=== PATIENT | female | born 1975 | race Caucasian/White ===

== ENCOUNTER 2019-10-26 09:55 | Emergency (ER) | payer OTHER, SELFPAY ==
--- NOTE | 2019-10-26 10:02 | ED.URI ---
HPI - URI/Sore Throat General Stated Complaint: Ear Pain,Cough Time Seen by Provider: 10/26/19 10:02 Source: patient and RN notes reviewed History of Present Illness HPI Narrative: Patient is a 44-year-old female presents the urgent care with complaints of left ear pain and cough. Patient started on Thursday with her symptoms. States that he has not done anything for her symptoms [id number]. Patient states that she is broke . Denies any known fever but states she has had chills. No other acute complaints. No acute distress noted. Patient aware the plan of care. Related Data Home Medications Medication Instructions Recorded Confirmed albuterol sulfate 2 puff INHALATION Q4-6H PRN 10/26/19 10/26/19 ergocalciferol (vitamin D2) 1,250 mcg PO WEEKLY 10/26/19 10/26/19 [Vitamin D2] Allergies Allergy/AdvReac Type Severity Reaction Status Date / Time diphenhydramine Allergy Mild rash Verified 10/26/19 10:01 Review of Systems Review of Systems: Narrative: CONSTITUTIONAL: Reports of chills EYES: Denies visual changes, redness, or discharge. ENT: Reports of sore throat and left otalgia CARDIOVASCULAR: Denies chest pain, palpitations, or edema. RESPIRATORY: Reports of nonproductive cough without dyspnea GASTROINTESTINAL: Denies abdominal pain, nausea, vomiting, or diarrhea. GENITOURINARY: Denies dysuria or hematuria. SKIN: Denies rash or itching. MUSCULOSKELETAL: Denies back pain, joint pain, or myalgia. NEUROLOGIC: Denies headache, numbness, or weakness. [facility] Social History Social History Gender identity (if verbalized by the patient): Female Comments At the time of my signature, I reviewed and agree with the nursing past medical, surgical, social, and family history. There is no relevant family history pertinent to the patient complaint. Exam Narrative: Exam Narrative: GENERAL: This is a well-nourished, well-developed patient, in no apparent distress. HEAD: normocephalic, atraumatic. EYES: PERRL. Sclera clear/white. Vision is grossly intact. EARS: External ears normal, auditory canals clear and without drainage, moderately effused and bulging left TM, right TM normal without perforation. Hearing grossly intact. NOSE: External nose normal with no obvious nasal discharge, nares without redness, no rhinorrhea. THROAT: Mucous membranes moist, posterior pharynx clear. Moderate postnasal drainage NECK: Neck supple CARDIOVASCULAR: Regular rate and rhythm without murmurs, gallops, or rubs. RESPIRATORY: Notable cough clear to auscultation. Breath sounds equal bilaterally. No wheezes, rales, or rhonchi. SKIN: warm, intact with no suspicious lesions or rash, good texture and turgor. NEURO: awake, alert, and oriented to person, place and time. There were no obvious focal neurologic abnormalities. EXTREMITIES: No clubbing, cyanosis, or edema. Course Vital Signs Vital signs: Vital Signs Temperature 97.8 F 10/26/19 10:13 Pulse Rate 89 10/26/19 10:13 Respiratory Rate 16 10/26/19 10:13 Blood Pressure 119/65 10/26/19 10:13 Pulse Oximetry 96 10/26/19 10:13 Temperature 97.8 F 10/26/19 10:13 Pulse Rate 89 10/26/19 10:13 Respiratory Rate 16 10/26/19 10:13 Blood Pressure 119/65 10/26/19 10:13 Pulse Oximetry 96 10/26/19 10:13 Reviewed MDM - URI/Sore Throat MDM Narrative Medical decision making narrative: Reviewed lab results with the patient. She is aware that strep swab was negative. Educated her on culture and will call within 72 hours if culture is positive and antibiotics are necessary. Advised the patient to use [id number] Flonase and Zyrtec for postnasal drainage. Complete amoxicillin for left ear pain as prescribed. Make sure to eat and drink with the medication. Use Tylenol/ibuprofen as needed for fever pain. Increase fluids and rest. Use humidifier at night. Follow-up with PCP within 2 to 5 days or for worsening symptoms or failure to improve. Differential Diagnosis
[2019-10-26 10:13] VITALS: BP 119/65; PULSE 89; RESP 16; TEMP 36.6; O2SAT 96
== END 2019-10-26 10:45 | disposition home or self-care (01) ==
PROVIDERS: Emergency Provider Nurse Practitioner Family; PCP Family Medicine
DX: H66.92 Otitis media, unspecified, left ear (principal); J45.909 Unspecified asthma, uncomplicated
CPT/HCPCS: 87081; 87880; 99213; G0463

== ENCOUNTER 2020-04-13 20:43 | Emergency (ER) | payer OTHER, SELFPAY ==
[2020-04-13 20:45] VITALS: BP 120/89; PULSE 99; RESP 18; TEMP 36.9; O2SAT 100
--- NOTE | 2020-04-13 21:29 | ED.GENADULT ---
HPI - General Adult General Chief complaint: Dental/Oral Stated complaint: facial infection Time Seen by Provider: 04/13/20 21:14 Source: patient Mode of arrival: ambulatory Limitations: no limitations History of Present Illness HPI narrative: Patient is a 45-year-old female who presents to emergency department for evaluation of gross dental decay noting right lower and upper dental pain and right posterior upper dental pain. Patient has recurrent infections notes moderate aching pain worse with eating and swallowing. Patient denies URI symptoms fever chills and has not been seen for this complaint by a dentist Related Data Home Medications Medication Instructions Recorded Confirmed albuterol sulfate 2 puff INHALATION Q4-6H PRN 10/26/19 10/26/19 ergocalciferol (vitamin D2) 1,250 mcg PO WEEKLY 10/26/19 10/26/19 [Vitamin D2] Allergies Allergy/AdvReac Type Severity Reaction Status Date / Time diphenhydramine Allergy Mild rash Verified 10/26/19 10:01 Review of Systems Review of Systems: All systems reviewed & are unremarkable except as noted in HPI and below PMFSH Past Medical History Medical History Obesity Surgical History Surgical History H/O section Social History Social History Smoking status: Current every day smoker Gender identity (if verbalized by the patient): Female Exam Narrative: Exam Narrative: GENERAL: Well-appearing, obese, and in no acute distress. HEAD: Normocephalic, atraumatic. EYES: PERRLA and EOMI. ENT: Nares clear, no rhinorrhea or epistaxis. Mucous membranes moist. Patient with dental caries in the oropharynx with no swelling of the gums. Uvula midline no trismus or drooling. Floor the mouth is soft NECK: Supple. No adenopathy or masses. CHEST: Clear to auscultation. No respiratory distress. No wheezes rales or rhonchi HEART: Regular rate and rhythm. No murmur heard. SKIN: Warm, dry, no rash. NEURO: No focal deficits. Alert and oriented x3. PSYCH: Normal mood and affect. Course Course Emergency Course: Patient in the room in no distress felt appropriate for outpatient reevaluation. Patient given medications in the emergency department for pain Vital Signs Vital signs: Vital Signs Temperature 98.5 F 04/13/20 20:45 Pulse Rate 99 04/13/20 20:45 Respiratory Rate 18 04/13/20 20:45 Blood Pressure 120/89 04/13/20 20:45 Pulse Oximetry 100 04/13/20 20:45 Temperature 98.5 F 04/13/20 20:45 Pulse Rate 99 04/13/20 20:45 Respiratory Rate 18 04/13/20 20:45 Blood Pressure 120/89 04/13/20 20:45 Pulse Oximetry 100 04/13/20 20:45 Medical Decision Making MDM Narrative Medical decision making narrative: Patients pain and complaint coupled with physical findings are consistent with dentalgia. There are no focal signs of space occupying lesions that are compromising to the airway. The floor of the mouth is soft with no signs of Ludwigs Angina. Patient is without trismus or drooling and able to swallow secretions. Patient is felt appropriate for discharge home with dental follow up. Vital Signs Vital Signs: Vital Signs Temperature 98.5 F 04/13/20 20:45 Pulse Rate 99 04/13/20 20:45 Respiratory Rate 18 04/13/20 20:45 Blood Pressure 120/89 04/13/20 20:45 Pulse Oximetry 100 04/13/20 20:45 Temperature 98.5 F 04/13/20 20:45 Pulse Rate 99 04/13/20 20:45 Respiratory Rate 18 04/13/20 20:45 Blood Pressure 120/89 04/13/20 20:45 Pulse Oximetry 100 04/13/20 20:45 Discharge Plan Discharge Clinical Impression: Toothache Patient Disposition: Home, Self-Care Condition: Stable Instructions: Antibiotic Form, Toothache (ED) Additional Instructions: Follow up with your primary care doctor in 5-7 days for re-evaluation. Go to ER fo
[2020-04-13] MEDS: KETOROLAC (*BKC) 60 MG/2 ML VIAL IM (21:37)
[2020-04-13 22:54] VITALS: BP 132/71; PULSE 87; RESP 18; O2SAT 100
== END 2020-04-13 22:58 | disposition home or self-care (01) ==
PROVIDERS: Emergency Provider Emergency Medicine; PCP Family Medicine
DX: K08.89 Other specified disorders of teeth and supporting structures (principal); E66.9 Obesity, unspecified; F17.200 Nicotine dependence, unspecified, uncomplicated
CPT/HCPCS: 96372; 99283; A9270; J1885

== ENCOUNTER 2020-05-19 21:57 | Emergency (ER) | payer OTHER, SELFPAY ==
[2020-05-19 22:04] VITALS: BP 145/69; PULSE 103; RESP 20; TEMP 36.7; O2SAT 98
--- NOTE | 2020-05-19 23:01 | ED.GENADULT ---
HPI - General Adult General Chief complaint: Wound/Laceration Stated complaint: BOIL UNDER R BREAST Time Seen by Provider: 05/19/20 22:40 History of Present Illness HPI narrative: Patient is a 45-year-old female who presents ER with concerns for infection beneath her right breast. Worsening over last 3 to 4 days. Feels a bump. No drainage. Skin is red and hot and very tender. No fevers or chills or sweats. 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 Related Data Home Medications Medication Instructions Recorded Confirmed albuterol sulfate 2 puff INHALATION Q4-6H PRN 10/26/19 10/26/19 ergocalciferol (vitamin D2) 1,250 mcg PO WEEKLY 10/26/19 10/26/19 [Vitamin D2] Allergies Allergy/AdvReac Type Severity Reaction Status Date / Time diphenhydramine Allergy Mild rash Verified 05/19/20 22:40 Review of Systems Review of Systems: All systems reviewed & are unremarkable except as noted in HPI and below Constitutional: Constitutional: Denies chills, Denies fever(s) and Denies weakness Integumentary/Breasts: Skin/Breast: Denies breast pain and Reports erythema PMFSH Past Medical History Medical History (Updated 05/19/20 @ 23:38 by Ermias Culver MD) Hydradenitis Obesity Surgical History Surgical History H/O section Social History Social History Smoking status: Current every day smoker Gender identity (if verbalized by the patient): Female Exam Narrative: Exam Narrative: GENERAL: Well-appearing, well-nourished, and in no acute distress. HEAD: Normocephalic, atraumatic. ABDOMEN: Soft, nontender, nondistended. EXTREMITIES: Normal range of motion. No edema. SKIN: Warm, dry, no rash. Oval area of firm skin and redness beneath the right breast lower chest wall consistent with cellulitis. NEURO: Alert and oriented x3. Course Course Emergency Course: Bedside ultrasound with a small area of fluid collection. This is been incised and drained. Bactrim here. Discharge home. Vital Signs Vital signs: Vital Signs Temperature 98.1 F 05/19/20 22:04 Pulse Rate 103 H 05/19/20 22:04 Respiratory Rate 20 05/19/20 22:04 Blood Pressure 145/69 H 05/19/20 22:04 Pulse Oximetry 98 05/19/20 22:04 Temperature 98.1 F 05/19/20 22:04 Pulse Rate 103 H 05/19/20 22:04 Respiratory Rate 05/19/20 22:04 Blood Pressure 145/69 H 05/19/20 22:04 Pulse Oximetry 98 05/19/20 22:04 Procedures Abscess I/D chest: Date of Incision: 05/19/20 Time of Incision: 22:50 Side (if applicable): right Local Anesthetic: lidocaine 1% and with epi Amount of anesthesia used (mL): 6 Technique: incised with #11 blade Irrigation: No Packing used?: iodoform I&D Results: Other (pus and cystic material) Medical Decision Making Vital Signs Vital Signs: Vital Signs Temperature 98.1 F 05/19/20 22:04 Pulse Rate 103 H 05/19/20 22:04 Respiratory Rate 20 05/19/20 22:04 Blood Pressure 145/69 H 05/19/20 22:04 Pulse Oximetry 98 05/19/20 22:04 Temperature 98.1 F 05/19/20 22:04 Pulse Rate 103 H 05/19/20 22:04 Respiratory Rate 05/19/20 22:04 Blood Pressure 145/69 H 05/19/20 22:04 Pulse Oximetry 98 05/19/20 22:04 Discharge Plan Discharge Clinical Impression: Abscess Patient Disposition: Home, Self-Care Condition: Stable Instructions: Antibiotic Form, Abscess (ED) Prescriptions: New sulfamethoxazole-trimethoprim [Bactrim DS] 800-160 mg tablet 1 tablet PO Q12H Qty: 14 RF: 0 hydrocodone-acetaminophen 5-325 mg tablet 1 tablet PO Q6H PRN (Reason: pain) Qty: 12 RF: 0 No Action ergocalciferol (vitamin D2) [Vitamin D2] 1,250 mcg (50,000 unit) Capsule 1,250 mcg PO WEEKLY RF: 0 albuterol sulfate 90 mcg/actuat
[2020-05-19] MEDS: LIDO 1%/EPINEPHRINE 1:100,000 20 ML VIAL (23:17)
== END 2020-05-19 23:47 | disposition home or self-care (01) ==
PROVIDERS: Emergency Provider Emergency Medicine; PCP Family Medicine
DX: L02.213 Cutaneous abscess of chest wall (principal); E66.9 Obesity, unspecified; F17.200 Nicotine dependence, unspecified, uncomplicated
CPT/HCPCS: 10061; 99283; A9270

== ENCOUNTER 2020-06-12 00:33 | Emergency (ER) | payer OTHER, SELFPAY ==
[2020-06-12 00:44] VITALS: BP 113/79; PULSE 99; RESP 22; TEMP 36.3; O2SAT 98
--- NOTE | 2020-06-12 02:54 | ED.SKABFB ---
HPI - Skin/Abscess/Foreign Bdy General Chief complaint: Skin/Abscess/Foreign Body Stated complaint: left breast/armpit/back discomfort Time Seen by Provider: 06/12/20 02:15 History of Present Illness HPI narrative: Pain to the skin on the left chest wall just below the left breast for the past five days. The pain changes between stinging, heat, and numbness. Yesterday she began to develop a red rash in this area. She has previously had chicken pox. No fever, SOB, open sores. Related Data Home Medications Medication Instructions Recorded Confirmed albuterol sulfate 2 puff INHALATION Q4-6H PRN 10/26/19 10/26/19 ergocalciferol (vitamin D2) 1,250 mcg PO WEEKLY 10/26/19 10/26/19 [Vitamin D2] Allergies Allergy/AdvReac Type Severity Reaction Status Date / Time diphenhydramine Allergy Mild rash Verified 05/19/20 22:40 Review of Systems Review of Systems: All systems reviewed & are unremarkable except as noted in HPI and below Constitutional: Constitutional: Denies chills, Denies fever(s) and Denies weakness Cardiovascular: Cardiovascular: Denies chest pain Respiratory: Respiratory: Denies dyspnea Gastrointestinal: Gastrointestinal: Denies abdominal pain, Denies nausea and Denies vomiting Musculoskeletal: Musculoskeletal: Denies back pain Integumentary/Breasts: Skin/Breast: Reports rash and Denies skin ulcer Neurologic: Denies confusion, Denies dizziness, Denies headache(s), Reports numbness and Denies weakness PMFSH Past Medical History Medical History Hydradenitis Obesity Surgical History Surgical History H/O section Social History Social History Smoking status: Current every day smoker Gender identity (if verbalized by the patient): Female Exam Const: General: no acute distress and alert Nutritional Appearance: well nourished Orientation/consciousness: patient oriented x3 HENMT: Head: normal to inspection Resp: Effort & Inspection: normal respiratory effort Auscultation: clear to auscultation bilaterally Cardio: Rate: regular rate Rhythm: regular rhythm GI: Inspection: non-distended Skin: Other: Pain, paresthesia and mildly erythematous rash on the left chest in approximately T5 distribution Course Vital Signs Vital signs: Vital Signs Temperature 36.3 C L 06/12/20 00:44 Pulse Rate 99 06/12/20 00:44 Respiratory Rate 22 H 06/12/20 00:44 Blood Pressure 113/79 06/12/20 00:44 Pulse Oximetry 98 06/12/20 00:44 Temperature 36.3 C L 06/12/20 00:44 Pulse Rate 99 06/12/20 00:44 Respiratory Rate 22 H 06/12/20 00:44 Blood Pressure 113/79 06/12/20 00:44 Pulse Oximetry 98 06/12/20 00:44 Discharge Plan Discharge Clinical Impression: Shingles Patient Disposition: Home, Self-Care Condition: Stable Instructions: Antibiotic Form, Shingles (ED) Prescriptions: New acyclovir 800 mg tablet 800 mg PO Q4H 7 Days Qty: 42 RF: 0 hydrocodone-acetaminophen [Dudley] 5-325 mg tablet 1 tablet PO Q6H PRN (Reason: pain) Qty: 10 RF: 0 prednisone 50 mg tablet 50 mg PO DAILY Qty: 6 RF: 0 No Action ergocalciferol (vitamin D2) [Vitamin D2] 1,250 mcg (50,000 unit) Capsule 1,250 mcg PO WEEKLY RF: 0 albuterol sulfate 90 mcg/actuation HFA aerosol inhaler 2 puff INHALATION Q4-6H PRN (Reason: Shortness Of Breath) RF: 0 amoxicillin 500 mg capsule 500 mg PO TID 10 Days Qty: 30 RF: 0 chlorhexidine gluconate [Peridex] 0.12 % mouthwash 15 ml MUCOUS MEM BID Qty: 1500 RF: 0 naproxen 500 mg tablet 500 mg PO BID PRN (Reason: pain) Qty: 7 RF: 0 sulfamethoxazole-trimethoprim [Bactrim DS] 800-160 mg tablet 1 tablet PO Q12H Qty: 14 RF: 0 hydrocodone-acetaminophen 5-325 mg tablet 1 tablet PO Q6H PRN (Reason: pain) Qty: 12 RF: 0 Follow-up/Referr
== END 2020-06-12 03:00 | disposition home or self-care (01) ==
PROVIDERS: Emergency Provider Emergency Medicine; PCP Family Medicine
DX: B02.9 Zoster without complications (principal); E66.9 Obesity, unspecified; Z68.35 Body mass index [BMI] 35.0-35.9, adult; F17.200 Nicotine dependence, unspecified, uncomplicated
CPT/HCPCS: 99283

== ENCOUNTER 2020-08-24 06:53 | Outpatient (NON) | payer OTHER, SELFPAY ==
[2020-08-25 23:03] LABS: SARS-CoV-2 RNA PCR Negative
== END 2020-08-24 06:54 ==
LOC: ANHCOVIDDT 07:11
PROVIDERS: PCP Family Medicine; Visit Provider Family Medicine
DX: Z20.828 Contact with and (suspected) exposure to other viral communicable diseases (principal); R09.89 Other specified symptoms and signs involving the circulatory and respiratory systems
CPT/HCPCS: 87635; C9803; U0003

== ENCOUNTER 2020-10-01 18:44 | Emergency (ER) | payer OTHER, SELFPAY ==
[2020-10-01 18:54] VITALS: BP 146/48; PULSE 94; RESP 19; TEMP 36.3; O2SAT 100
--- NOTE | 2020-10-01 19:02 | ED.LOWEXIN ---
HPI - Extremity Injury (Lower) General Chief Complaint: Extremity Problem,Nontraumatic Stated Complaint: swollen legs Time Seen by Provider: 10/01/20 19:02 Source: patient and family Mode of arrival: ambulatory Limitations: no limitations History of Present Illness HPI Narrative: Patient is a 45-year-old female who presents for evaluation of lower leg swelling. Patient states she has had worsening swelling over the past month, states that she has been taking triamterene which her primary care physician prescribed without much improvement in her symptoms. She denies any current chest pain, she states at times she has shortness of breath due to her asthma but denies current shortness of breath. No fever or chills. No redness in the lower legs. No history of blood clot. Related Data Home Medications Medication Instructions Recorded Confirmed albuterol sulfate 2 puff INHALATION Q4-6H PRN 10/26/19 10/26/19 ergocalciferol (vitamin D2) 1,250 mcg PO WEEKLY 10/26/19 10/26/19 [Vitamin D2] Allergies Allergy/AdvReac Type Severity Reaction Status Date / Time diphenhydramine Allergy Mild rash Verified 05/19/20 22:40 Review of Systems Review of Systems: Narrative: CONSTITUTIONAL: Denies fever, chills, or sweats. ENT: Denies rhinorrhea, congestion CARDIOVASCULAR: Denies chest pain, palpitations, reports bilateral lower extremity edema RESPIRATORY: Denies cough or dyspnea. GASTROINTESTINAL: Denies abdominal pain, nausea, vomiting, or diarrhea. GENITOURINARY: Denies dysuria or hematuria. SKIN: Denies rash or itching. MUSCULOSKELETAL: Denies back pain, joint pain, reports soreness in her lower legs NEUROLOGIC: Denies headache, numbness, or weakness. [facility] Past Medical History Medical History (Updated 10/01/20 @ 21:25 by Amada Zimmer MD) Hydradenitis Obesity Surgical History Surgical History H/O section Social History Social History Smoking status: Current every day smoker Gender identity (if verbalized by the patient): Female Exam Narrative: Exam Narrative: GENERAL: Awake, alert, conversant HEAD: Normocephalic, atraumatic. EYES: PERRLA and EOMI. ENT: Nares clear, no rhinorrhea or epistaxis. Mucous membranes moist. NECK: Supple. CHEST: No respiratory distress, breathing even and non labored HEART: Regular rate, sinus rhythm ABDOMEN:Non distended, non tender EXTREMITIES: Normal range of motion. Mild, pitting edema 1+ bilaterally which begins at the mid shins. No associated erythema, warmth. Extremities are warm and well perfused, posterior tibialis pulses are 2+. No abscesses or evidence of streaking erythema. No calf tenderness bilaterally. SKIN: Warm, dry, no rash. NEURO:No focal deficits. Alert and oriented x3 Course Vital Signs Vital signs: Vital Signs Temperature 36.3 C L 10/01/20 18:54 Pulse Rate 94 10/01/20 18:54 Respiratory Rate 19 10/01/20 18:54 Blood Pressure 146/48 H 10/01/20 18:54 Pulse Oximetry 100 10/01/20 18:54 Temperature 36.3 C L 10/01/20 18:54 Pulse Rate 94 10/01/20 18:54 Respiratory Rate 19 10/01/20 18:54 Blood Pressure 146/48 H 10/01/20 18:54 Pulse Oximetry 100 10/01/20 18:54 MDM - Extremity Injury (Lower) MDM Narrative Medical decision making narrative: Patient presenting for bilateral lower extremity edema. No chest pain or shortness of breath. Patient is obese on exam, does have some very mild pitting edema to the bilateral lower extremities without signs of cellulitis or infection. Extremities are warm and well-perfused. At this point, I did check for heart failure which the patient's BNP is not critically elevated. Her electrolytes are stable. No acute kidney injury. D-dimer is not at a critical level making a blood clot less likely especially given the bilateral nature of the symptoms, however patient is quite concern
--- NOTE | 2020-10-01 19:02 | PC.NURSE ---
patient brought back to [facility] with c/o BLE edema for a few weeks. has already seen her PCP but states the diuretic is not helping. also states she has not taken her water pill today. patient sitting on side of stretcher. advised she needs to take her shoes and socks off and lay back for exam by physician. patient states she needs her to help her.
[2020-10-01 19:58] LABS: Basophils Percent Auto 0.3 % (0.2-1.2); Eosinophils Absolute Auto 0.6 K/mm3 (0-0.3); Eosinophils Percent Auto 8.2 % (0-4.4); Hematocrit 38.1 % (37.0-47.0); Hemoglobin 12.7 g/dL (12.0-15.0); Immature Granulocyte Absolute 0.02 K/mm3 (0.00-0.031); Immature Granulocyte Percent A 0.3 % (0-0.5); Lymphocytes Absolute Auto 2.33 K/mm3 (0.9-3.2); Lymphocytes Percent Auto 33.4 % (18.3-44.2); Mean Corpuscular HGB Conc 33.3 g/dl (32-36); Mean Corpuscular Hemoglobin 32.2 pg (26-34); Mean Corpuscular Volume 96.7 fl (80-100); Mean Platelet Volume 11.6 fl (7.4-10.4); Monocytes Absolute Auto 0.5 K/mm3 (0.1-0.6); Monocytes Percent Auto 7.6 % (2.6-8.5); Neutrophils Absolute Auto 3.5 K/mm3 (1.3-6.7); Neutrophils Percent Auto 50.2 % (45.5-73.1); Platelet Count Result 285 k/mm3 (150-375); Red Blood Count 3.94 M/mm3 (4.2-5.4); Red Cell Distribution Width 12.7 % (11.5-14.5)
[2020-10-01 20:10] LABS: Alanine Aminotransferase 24 U/L (4-35); Albumin Level 3.7 g/dL (3.5-5.1); Alkaline Phosphatase 67 U/L (38-126); Anion Gap 3 mmol/L (8-16); Aspartate Amino Transferase 26 U/L (14-36); Bilirubin,Total 0.3 mg/dL (0.2-1.3); Blood Urea Nitrogen 12 mg/dL (7-17); Calcium 8.4 mg/dL (8.4-10.2); Carbon Dioxide 29 mmol/L (22-30); Chloride 105 mmol/L (98-107); Creatine Kinase 90 U/L (30-135); D Dimer 0.37 ug/mL (<0.48); Estimated CRCL calculation 91 ml/min; Estimated Glomerular Filt Rate > 60; Glucose 94 mg/dL (65-105); Potassium 4.4 mmol/L (3.4-5.0); Sodium 137 mmol/L (137-145)
[2020-10-01 20:19] LABS: NT Pro B Type Natriuretic Pept 109 PG/ML (5-100)
--- NOTE | 2020-10-01 20:25 | PC.NURSE ---
all labs results. waiting for further orders from provider. resting on stretcher. on cardiac cath rn.
--- NOTE | 2020-10-01 21:18 | PC.NURSE ---
patient resting on stretcher. in room. waiting for further orders from provider. patient drank 32oz soda while here in ED.
[2020-10-01 21:25] VITALS: PULSE 86; RESP 25; O2SAT 95
--- NOTE | 2020-10-01 21:29 | PC.NURSE ---
provider at bedside.
== END 2020-10-01 21:48 | disposition home or self-care (01) ==
PROVIDERS: Emergency Provider Emergency Medicine; PCP Family Medicine
DX: R60.0 Localized edema (principal); F17.200 Nicotine dependence, unspecified, uncomplicated; E66.9 Obesity, unspecified; Z68.41 Body mass index [BMI] 40.0-44.9, adult
CPT/HCPCS: 36415; 80053; 82550; 83880; 85025; 85380; 99283

== ENCOUNTER 2020-10-02 08:34 | Outpatient (CLI) | payer OTHER, SELFPAY ==
--- NOTE | ~2020-10-02 | US_ITS ---
EXAMINATION: US venous doppler [facility] DATE: 10/02/2020 09:11 INDICATION: Lower limb edema. TECHNIQUE: Grayscale ultrasound images without and with compression and Doppler ultrasound images of the bilateral lower extremity veins were obtained. COMPARISON: None. FINDINGS: The visualized portions of right common femoral vein, profunda (deep) femoral vein, femoral vein, pop liteal vein, posterior tibial veins, and greater saphenous vein outflow are patent. The visualized portions of left common femoral vein, profunda femoral vein, femoral vein, popliteal v ein, posterior tibial veins, and greater saphenous vein outflow are patent. IMPRESSION: 1. No deep venous thrombosis. Reviewed, dictated and finalized at location A. [employer]
== END 2020-10-02 08:35 | disposition home or self-care (01) ==
LOC: ANHIMG 08:40
PROVIDERS: PCP Family Medicine; Visit Provider Family Medicine
DX: R60.0 Localized edema (principal)
CPT/HCPCS: 93970